=== PATIENT | male | born 1985 | race American Indian/Alaskan Native ===

== ENCOUNTER 2018-02-10 14:01 | Emergency (ER) | payer SELFPAY ==
[2018-02-10 14:16] VITALS: BP 126/80
--- NOTE | 2018-02-10 14:52 | XRay Report ---
RIGHT KNEE, 3 views: History: Right knee pain, injury Normal bone mineralization. No evidence for fracture or joint pathology. There appears to be an approximate 2 cm bone cyst in the proximal tibial metaphysis. The clinical significance of this is doubtful. The soft tissues are unremarkable. IMPRESSION: No evidence for acute injury. Bone cyst in the proximal tibia.
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
[2018-02-10] MEDS ORDERED: MOTRIN PO ONE (15:45)
== END 2018-02-10 16:28 | disposition home or self-care (01) ==
LOC: ED 14:01
DX: M25.561 Pain in right knee (principal); M85.661 Other cyst of bone, right lower leg
CPT/HCPCS: 99283

== ENCOUNTER 2019-06-15 16:36 | Emergency (ER) | payer SELFPAY ==
--- NOTE | 2019-06-15 18:24 | Emergency Department Report ---
Blank Doc - Documentation Documentation: 34-year-old male that presents with acute headache. This initial assessment/diagnostic orders/clinical plan/treatment(s) is/are subject to change based on patient's health status, clinical progression and re- assessment by fellow clinical providers in the ED. Further treatment and workup at subsequent clinical providers discretion. Patient/guardians urged not to elope from the ED as their condition may be serious if not clinically assessed and managed. Initial orders include: 1- Patient sent to [facility] for further evaluation and treatment 2- CT head
--- NOTE | 2019-06-15 19:44 | Cat Scan Report ---
NONENHANCED CT SCAN OF THE HEAD: INDICATION / CLINICAL INFORMATION: 34 years Male; headache. TECHNIQUE: Routine CT head without contrast. All CT scans at this location are performed using CT dos e reduction for ALARA by means of automated exposure control. COMPARISON: None. FINDINGS: BRAIN / INTRACRANIAL CONTENTS: No acute hemorrhage, mass effect, midline shift, hydrocephalus, or ac chilkat, large territorial infarct. No chronic infarct or focal atrophy. Normal brain volume and ventricu lar/sulcal size for age. No significant white matter abnormality. CRANIOCERVICAL JUNCTION: No significant abnormality. ORBITS: No significant abnormality of visualized orbits. SINUSES / MASTOIDS: No significant abnormality of the visualized paranasal sinuses or mastoid air rosio ls. ADDITIONAL FINDINGS: None. IMPRESSION: Normal nonenhanced CT scan of the brain. Signer Name: Jesús Witt MD Signed: 06/15/2019 7:39 PM Workstation Name: [id number]
[2019-06-15] MEDS ORDERED: KETOROLAC 30 MG/1 ML INJ IM ONE (19:52)
[2019-06-15] MEDS ORDERED: ONDANSETRON 4 MG ODT TAB PO ONE (19:53)
[2019-06-15] MEDS ORDERED: BUTALB/ACETAMINOPHEN/CAFFEINE TAB PO ONE (19:53)
[2019-06-15] MEDS ORDERED: diphenhydrAMINE 25 MG CAP PO ONE (19:53)
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
[2019-06-15 21:20] VITALS: BP 155/85
== END 2019-06-15 21:23 | disposition home or self-care (01) ==
LOC: ED 16:36
DX: J01.10 Acute frontal sinusitis, unspecified (principal); R11.2 Nausea with vomiting, unspecified; Z79.1 Long term (current) use of non-steroidal anti-inflammatories (NSAID); Z79.899 Other long term (current) drug therapy; Z98.890 Other specified postprocedural states
CPT/HCPCS: 70450; 96372; 99283; J1885; Q0162

== ENCOUNTER 2021-07-31 12:40 | Emergency (ER) | payer SELFPAY ==
[2021-07-31] MEDS ORDERED: dexAMETHasone 4 MG/ML VIAL IM ONE (13:42)
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
[2021-07-31 14:16] VITALS: BP 118/78
== END 2021-07-31 14:16 | disposition home or self-care (01) ==
LOC: ED 12:40
DX: M10.9 Gout, unspecified (principal); Z88.2 Allergy status to sulfonamides
CPT/HCPCS: 96372; 99282; J1100